=== PATIENT | male | born 1990 | race Caucasian/White ===

== ENCOUNTER 2017-09-21 12:01 | Emergency (ER) | payer OTHER ==
[2017-09-21 12:09] VITALS: BP 124/82
--- NOTE | 2017-09-21 12:22 | ED Physician Documentation ---
PD HPI MALE - Stated complaint Stated Complaint: MALE /ABD PX - Chief complaint Chief Complaint: UTI - History obtained from History obtained from: Patient - History of Present Illness Timing - onset: Today Timing - duration: Hours (1) Timing - details: Abrupt onset, Still present (struck by basketball left scrotum /inguinal area with pain there. No noted swelling. Pain has persisted an hour or more, so here for evaluation.) Associated symptoms: Testiclar pain (since the injury), Abdominal pain. No: Dysuria, Scrotal swelling PD HPI MALE CONTRIB FACTORS: No: Exposed to STD Similar symptoms before: Has not had sx before Recently seen: Not recently seen Review of Systems GI: denies: Nausea, Vomiting Skin: denies: Abrasion (s), Laceration (s) Neurologic: denies: Focal weakness, Numbness PD PAST MEDICAL HISTORY - Past Medical History Past Medical History: Yes Cardiovascular: None Respiratory: None Neuro: None Endocrine/Autoimmune: None GI: None : None HEENT: None Psych: ADD/ADHD Musculoskeletal: None Derm: None - Past Surgical History Past Surgical History: Yes General: Appendectomy - Present Medications Home Medications: Ambulatory Orders Medication Instructions Recorded Confirmed Dextroamphetamine/Amphetamine 40 mg ORAL DAILY 09/21/17 09/21/17 [Adderall Xr 30 mg Capsule] - Allergies Allergies/Adverse Reactions: Allergies Allergy/AdvReac Type Severity Reaction Status Date / Time No Known Drug Allergies Allergy Verified 09/21/17 12:09 - Social History Does the pt smoke?: No Smoking Status: Former smoker Does the pt drink ETOH?: Yes Does the pt have substance abuse?: No - Immunizations Immunizations are current?: Yes PD ED PE NORMAL - Vitals Vital signs reviewed: Yes - General General: Alert and oriented X 3, No acute distress, Well developed/nourished - Abdomen Abdomen: Soft, Non tender - Male Male : Other (some tender left scrotum without masses nor obvious swelling. Inguinal area without masses. Some tender left inguinal though. Able to lift leg and rotate it. ) - Back Back: No CVA TTP - Derm Derm: Normal color, Warm and dry Results - Vitals Vitals: Vital Signs - 24 hr 09/21/17 09/21/17 12:06 13:57 Temperature 36.8 C Heart Rate 90 78 Respiratory 20 16 Rate Blood Pressure 124/82 H O2 Saturation 100 100 Oxygen O2 Source Room air - Rads (name of study) scrotal U/S Radiology: Prelim report reviewed (normal exam) PD MEDICAL DECISION MAKING - ED course Complexity details: reviewed results (normal u/s), considered differential, d/w patient Departure - Departure Disposition: 01 Home, Self Care Clinical Impression: Contusion of scrotum Qualifiers: Encounter type: initial encounter Qualified Code(s): S30.22XA - Contusion of scrotum and testes, initial encounter Condition: Stable Record reviewed to determine appropriate education?: Yes Instructions: ED Contusion Testicles Or Scrotum Follow-Up: ROCK Haines [Provider Group] Comments: Tylenol or ibuprofen if needed for pains. Less activity today. This should improve over a day or 2. Ultrasound is normal and there is no structural injury of the testicles or scrotum. There is good blood flow on both sides. Forms: Activity restrictions Discharge Date/Time: 09/21/17 13:59
[2017-09-21] MEDS ORDERED: IBUPROFEN 600 MG TABLET PO STA (12:38)
[2017-09-21] MEDS ORDERED: ACETAMINOPHEN 325 MG TABLET PO STA (12:38)
--- NOTE | 2017-09-21 13:51 | Ultrasound Report ---
SCROTAL DUPLEX; 09/21/2017 CLINICAL INDICATION: Trauma, left-sided pain. TECHNIQUE: Real-time sonographic vascular imaging was performed by the hospital nurse liaison through the scrotum utilizing both color-flow and Doppler spectral analysis. Multiple sales representative publications static images were saved for review. FINDINGS: The right testicle measures 4.8 x 3.1 x 2.4 cm, and the left testicle measures 4.9 x 2.8 x 2.0 cm. Both testicles demonstrate normal echotexture and blood flow. The epididymides are unremarkable. A small left varicocele is present. No hydrocele is seen. No hernia is appreciated. IMPRESSION: SMALL LEFT VARICOCELE. OTHERWISE, NORMAL SCROTAL DUPLEX. TD: 09/21/2017 13:50
== END 2017-09-21 13:59 | disposition home or self-care (01) ==
LOC: ED 12:01
DX: S30.22XA Contusion of scrotum and testes, initial encounter (principal); W21.05XA Struck by basketball, initial encounter; Z87.891 Personal history of nicotine dependence
CPT/HCPCS: 76870; 93975; 99283; A9270

== ENCOUNTER 2019-10-30 07:14 | Outpatient (CLI) | payer OTHER ==
--- NOTE | 2019-10-30 08:42 | MRI Report ---
Reason: RT UPPER ARM SYNOVITIS AND TENOSYNOVITIS Procedure Date: 10/30/2019 Accession Number: [id number] / [id number] Procedure: MRI - Elbow RT W/O CPT Code: Final Report FULL RESULT: EXAM: RIGHT ELBOW MRI WITHOUT CONTRAST EXAM DATE: 10/30/2019 08:23 AM. CLINICAL HISTORY: POSTERIOR ELBOW PAIN WITH ELBOW EXTENSION AFTER FIELD HOCKEY INJURY IN DECEMBER 2018. PLEASE EVALUATE FOR RT UPPER ARM SYNOVITIS AND TENOSYNOVITIS. COMPARISON: None. TECHNIQUE: Multiplanar, multisequence T1-weighted and fluid-sensitive sequences of the elbow without contrast. Other: None. FINDINGS: Bones: No fractures or subluxations. No marrow edema. No bone lesions. Articular Cartilage: Unremarkable. Ligaments: The ulnar collateral, lateral ulnar collateral, radial collateral, and annular ligaments are intact. Tendons: There is mild increased signal in the distal triceps tendon, most pronounced along its medial margin, located at the olecranon insertion, tendinosis versus very low-grade partial tear. No high grade distal triceps tear is present. This region directly underlies the skin marker placed at the point of maximal tenderness and is presumably the source for the patient's symptoms. The common extensor tendon, common flexor tendon, distal biceps tendon, and brachialis tendons are normal. Musculature: No edema or fatty atrophy. Other: The cubital tunnel and ulnar nerve are unremarkable. No effusion. The subcutaneous tissues are unremarkable. IMPRESSION: Minimal increased signal in the distal triceps tendon at the olecranon insertion, most evident along the medial sided fibers, tendinosis versus low-grade partial thickness tear. This directly underlies the skin marker placed at the site of tenderness and is presumably the source for the patient's symptoms. The remainder of the elbow is normal. RADIA
== END 2019-10-30 07:15 | disposition home or self-care (01) ==
LOC: DI 07:14
PROVIDERS: ATTEND Orthopaedic Surgery
DX: M65.821 Other synovitis and tenosynovitis, right upper arm (principal)

== ENCOUNTER 2019-12-28 06:26 | Day surgery (SDC) | payer OTHER ==
[~2019-12-28 06:26] MED LIST: CEFAZOLIN SODIUM IN 0.9 % NACL 2 GM/100 ML BAG IV ONE; LACTATED RINGERS 1,000 ML IV ONE
[2019-12-28] MEDS ORDERED: BUPIVACAINE 0.25% PF 30 ML VIAL ONE (07:12)
--- NOTE | 2019-12-28 07:12 | ANESTHESIA ---
Pre-Anesthesia VS, & Labs - Diagnosis R triceps tendonitis - Procedure R olecranon osteophyte, possible triceps repair Vital Signs: Temp Pulse Resp BP Pulse Ox 36.4 C L 63 12 142/91 H 100 12/28/19 06:22 12/28/19 06:22 12/28/19 06:22 12/28/19 06:22 12/28/19 06:22 Height 5 ft 10 in Weight (kg) 79.38 kg Body Mass Index 23.7 - NPO >8 hours - Lab Results Lab results reviewed: No Home Medications and Allergies Home Medications: Ambulatory Orders Cetirizine [ZyrTEC] 10 mg PO DAILY 12/24/19 Dextroamphetamine/Amphetamine [Adderall Xr 30 mg Capsule] 60 mg ORAL DAILY 09/21/17 Cetirizine [ZyrTEC] 10 mg PO DAILY 12/24/19 Allergies/Adverse Reactions: Allergies Allergy/AdvReac Type Severity Reaction Status Date / Time No Known Drug Allergies Allergy Verified 12/24/19 15:00 Anes History & Medical History - Anesthetic History Anesthesia Complications: reports: No previous complications Family history of Anesthesia Complications: Denies Family history of Malignant Hyperthermia: Denies - Medical History Cardiovascular: reports: Coronary artery disease Pulmonary: reports: None Gastrointestinal: reports: None Urinary: reports: None Musculoskeletal: reports: Other Endocrine/Autoimmune: reports: None Blood Disorders: reports: None Skin: reports: None Smoking Status: Former smoker - Surgical History General: Appendectomy Exam General: Alert, Oriented x3, Cooperative Dental: WNL Mouth Opening: Greater than 4 Fingerbreadths Neck Mobility: Normal Mallampati classification: I Thyromental Distance: greater than 6 cm Respiratory: Lungs clear, Normal breath sounds, No respiratory distress Cardiovascular: Regular rate Neurological: Normal speech Mental/Cognitive Status: Alert/Oriented X3, Normal for patient Cognitive Status: Within normal limits Plan Anesthesia Type: General, Supraclavicular Block (possible) Consent for Procedure(s) Verified and Reviewed: Yes Code Status: Attempt Resuscitation ASA classification: 2-Mild systemic disease Is this case an emergency?: No
[2019-12-28] MEDS ORDERED: fentaNYL 100 MCG/2 ML VIAL IVP ONE (07:42)
[2019-12-28] MEDS ORDERED: ONDANSETRON 4 MG/2 ML VIAL IVP ONE (07:42)
[2019-12-28] MEDS ORDERED: ROCURONIUM 50 MG/5 ML VIAL IVP ONE (07:42)
[2019-12-28] MEDS ORDERED: KETOROLAC 30 MG/ML VIAL IVP ONE (07:42)
[2019-12-28] MEDS ORDERED: PROPOFOL 200 MG/20 ML VIAL IVP ONE (07:42)
[2019-12-28] MEDS ORDERED: ACETAMINOPHEN 1,000 MG/100 ML 100 ML IV ONE (07:42)
[2019-12-28] MEDS ORDERED: DEXAMETHASONE 4 MG/ML VIAL IVP ONE (07:42)
[2019-12-28] MEDS ORDERED: GLYCOPYRROLATE 1 MG/5 ML VIAL IVP ONE (07:42)
[2019-12-28] MEDS ORDERED: LIDOCAINE-MPF 2% 5 ML VIAL IM ONE (07:42)
[2019-12-28] MEDS ORDERED: NEOSTIGMINE 1 MG/1 ML 10 ML MDV IVP ONE (07:42)
[2019-12-28] MEDS ORDERED: BUPIVACAINE 0.25% PF 30 ML VIAL SUBQ ONE (08:42)
[2019-12-28] MEDS ORDERED: oxyCODONE 5 MG TABLET PO PRN (09:13)
[2019-12-28] MEDS ORDERED: ONDANSETRON 4 MG/2 ML VIAL IVP PRN (09:13)
--- NOTE | 2019-12-28 09:20 | OPERATIVE REPORT ---
Operative Report - Other Other Information/Narrative: Date of Surgery: 28 Dec 2019 Pre-Op Diagnosis: Right olecranon enthesophyte and triceps tendinitis Procedure: Right olecranon enthesophyte excision. Debridement of triceps tendon. Postop Diagnosis: Same Primary Surgeon: Wenceslao Flannery Secondary Surgeon: None Complications: None Tourniquet Time: 36 minutes EBL: 5 cc Implants: None Postoperative Protocol: Dressings on until 2 weeks. Gentle range of motion until 6 weeks. May begin active strengthening gradually at 6 weeks. Indication For Surgery: 29-year-old male sustained a direct blow to the elbow many months ago and developed exquisite pain with any triceps extension or direct pressure on the elbow. X-ray showed a large enthesophyte. The goal of surgery would be to remove the enthesophyte and debride any portion of the triceps tendon that of poor quality. If there was a large amount of triceps tendon released a repair would be required. The risks, benefits, and alternatives were discussed. Risks include pain, bleeding, infection, damage to nearby structures, numbness, lack of symptom relief, implant complications, nonunion, need for further surgery, DVT, PE, stroke, and . Written consent was obtained. Procedure in Detail: The patient was met in the pre-operative hold area on the day of the procedure. The operative extremity was signed and questions were answered. The patient was brought to the operating room and a general anesthetic was administered. Supine position was used and all bony prominences were padded. Standard prepping and draping was performed. A time out confirmed patient identification, laterality, procedure, allergies, antibiotics, and images. An Esmarch was used to exsanguinate the limb and the tourniquet was elevated to 250 mmHg. A curvilinear incision was made to the radial side of the olecranon avoiding the tip. Sharp dissection was brought down through the bursa onto the fascia. A longitudinal incision was made at the insertion of the triceps tendon and the enthesophyte was visible. The enthesophyte was found to be mobile. After removing all portions of the triceps dissecting out to the enthesophyte completely it was excised under fluoroscopic guidance using a chisel. I then used Nirschl technique to remove all unhealthy portions of the triceps tendon. A rasp was then used to smooth the olecranon tip. 5 or 6 holes were drilled with a 1.6 mm K wire to induce bleeding from the bone. Because only a small amount of the triceps had to be released a repair to bone was not required. A side to side repair was then performed with 0 Vicryl. The wound was then irrigated copiously and closed in a layered fashion with 2-0 Vicryl to reapproximate the bursa and the dermis. Running Monocryl was placed in the skin. 20 cc of quarter percent Marcaine plain were instilled into the wound. The ulnar nerve was never seen throughout the procedure and I did not dissect very far ulnarly. Mastisol and Steri-Strips were applied. A sterile very bulky dressing was applied and he was put into a sling. He was awakened and transferred to the recovery room.
[2019-12-28] MEDS ORDERED: oxyCODONE 5 MG TABLET ONE (09:47)
[2019-12-28 09:53] VITALS: BP 124/80
== END 2019-12-28 06:27 | disposition home or self-care (01) ==
LOC: SDS 06:26
PROVIDERS: ATTEND Orthopaedic Surgery
DX: M77.8 Other enthesopathies, not elsewhere classified (principal); M25.721 Osteophyte, right elbow; F17.220 Nicotine dependence, chewing tobacco, uncomplicated